=== PATIENT | female | born 1960 | race Caucasian/White ===

== ENCOUNTER → 2018-03-28 | Outpatient (CLI) | payer OTHER ==
[~2018-03-28] MED LIST: ATOR10 PO; ATORVASTATIN CA10 MG PO; BUDE10.22 INH; MOEHYD7.5 PO; WARF5 PO; ZESTORETIC 20-121 EA; [UNRECOGNIZED DRUG - OTHER] PO
== END ==
LOC: LAB SHORT 17:02 → OLS 17:02
PROVIDERS: Obstetrics & Gynecology Gynecology
DX: Z12.4 Encounter for screening for malignant neoplasm of cervix (principal)
CPT/HCPCS: 87624; G0123

== ENCOUNTER → 2019-08-14 | Outpatient (CLI) | payer OTHER ==
[2019-08-19 13:40] LABS: HPV 16 Negative (Negative); HPV 18 Negative (Negative); HPV OTHER HR TYPES Negative (Negative)
== END | disposition home or self-care (01) ==
LOC: LAB 16:31 → LAB SHORT 16:31
PROVIDERS: Obstetrics & Gynecology Gynecology
DX: Z12.72 Encounter for screening for malignant neoplasm of vagina (principal)
CPT/HCPCS: 87624; G0123

== ENCOUNTER → 2020-10-05 | Outpatient (CLI) | payer OTHER | END | disposition home or self-care (01) | LOC: LAB SHORT 13:10 → PLD 13:10 | DX: D23.111 Other benign neoplasm of skin of right upper eyelid, including canthus (principal) | CPT/HCPCS: 88304 ==

== ENCOUNTER 2022-09-09 07:49 | Day surgery (SDC) | payer OTHER ==
[~2022-09-09] VITALS: Ht 167.6 cm; Wt 107.1 kg
--- NOTE | 2022-09-09 09:57 | NUR ---
09/09/22 0957 Petey Mcmullen 15MLS OF BUPIVICAINE 0.25% MIXED 1:1 WITH 15MLS OF BUPIVICAINE 0.75% TO CREATE A LOCAL SOLUTION OF BUPIVICAINE 0.5%. ALL 30MLS USED DURING CASE.
--- NOTE | 2022-09-09 10:34 | NUR ---
09/09/22 1034 ANA MARIA HERMOSILLO TRIAL ON 5L O2. CURRENTLY 94%
--- NOTE | 2022-09-09 10:58 | NUR ---
09/09/22 1058 ANA MARIA HERMOSILLO INCENTIVE SPIROMOMETER GIVEN TO HELP KEEP O2 STATS UP
== END 2022-09-09 11:49 | disposition home or self-care (01) ==
LOC: ORSCSDS 07:49
PROVIDERS: Surgery
PROC: 0WUF0JZ Supplement Abdominal Wall with Synthetic Substitute, Open Approach (ICD-10-PCS; principal; 2022-09-09 09:00)
DX: K43.6 Other and unspecified ventral hernia with obstruction, without gangrene (principal); I10 Essential (primary) hypertension; F41.9 Anxiety disorder, unspecified; Z79.899 Other long term (current) drug therapy
CPT/HCPCS: C1781; J0690; J1100; J1885; J2250; J2405; J2704; J3010; J7120